=== PATIENT | male | born 2000 | race African-American/Black ===

== ENCOUNTER 2025-06-06 04:09 | Emergency (ER) | payer BC ==
[~2025-06-06] VITALS: Ht 172.7 cm; Wt 79.4 kg
[2025-06-06] MEDS ORDERED: KETOROLAC TROMETHAMINE INJ 30 MG/ML VIAL ONE (05:05)
[2025-06-06] MEDS: KETOROLAC TROMETHAMINE INJ 30 MG/ML VIAL IM ONE (05:09)
[2025-06-06 05:49] LABS: PLATELET COUNT (AUTO) 200 K/uL (150-450); RED BLOOD CELL COUNT(AUTO) 4.86 MIL/uL (4.5-6.0); RED CELL DISTRIBUTION WIDTH 13.6 % (11.5-15.0); WHITE BLOOD COUNT (AUTO) 15.3 K/uL (4.3-11.0)
[2025-06-06 05:53] LABS: CALCIUM, SERUM 9.1 mg/dL (8.5-10.1); CREATININE 1.4 mg/dL (0.6-1.3); SODIUM SERUM 140.0 mmol/L (136-145); UREA NITROGEN, BLOOD 18.0 mg/dL (7-18)
[2025-06-06 05:53] LABS: APPEARANCE,URINE CLEAR (CLEAR); BLOOD, URINE NEGATIVE Ery/uL (NEGATIVE); LEUKOCYTE ESTERASE ,URINE NEGATIVE (NEGATIVE); NITRITE, URINE NEGATIVE (NEGATIVE); UGLUCOSE NEGATIVE (NEGATIVE)
[2025-06-06 05:58] LABS: ASPARTATE AMINOTRANSFERASE 18.0 U/L (15-37); TOTAL PROTEIN, SERUM 7.5 g/dL (6.4-8.2)
[2025-06-06 05:59] LABS: AMPHETAMINE, URINE NEGATIVE (NEGATIVE); BARBITURATE, URINE NEGATIVE (NEGATIVE); BENZODIAZEPINE, URINE NEGATIVE (NEGATIVE); COCCAINE, URINE NEGATIVE (NEGATIVE); OPIATE, URINE NEGATIVE (NEGATIVE)
[2025-06-06 06:00] LABS: ADD URINE CULTURE NO; CANNABINOID, URINE POSITIVE (NEGATIVE); SQUAMOUS EPITHELIAL CELL,UR Few /HPF (None Seen)
[2025-06-06 06:01] LABS: ERYTHROCYTE SEDIMENTATION RATE 9 MM/HR (0-15)
[2025-06-06] MEDS ORDERED: HYDR-3976 PO (06:02)
[2025-06-06] MEDS: HYDROCODONE/APAP 10/325MG TABLET PO ONE (06:03)
[2025-06-06] MEDS ORDERED: HYDROCODONE/APAP 10/325MG TABLET ONE (06:03)
[2025-06-06 06:07] VITALS: BP 132/70; TEMP 97.8; O2SAT 96
== END 2025-06-06 06:08 | disposition home or self-care (01) ==
LOC: ER 04:13
DX: M25.511 Pain in right shoulder (principal); Z60.2 Problems related to living alone
CPT/HCPCS: 99283; 96372; 85025; 85652; 84550; 36415; 80053; 80307; 81001; J1885